=== PATIENT | male | born 1985 | race African-American/Black ===

== ENCOUNTER 2020-10-14 10:35 | Emergency (ER) | payer OTHER ==
[~2020-10-14] VITALS: Ht 177.8 cm; Wt 86.2 kg
[2020-10-14 10:50] VITALS: BP 127/100
--- NOTE | 2020-10-14 10:55 | NUR ---
PATIENT CAME IN WITH STATING, "I WAS playing Basketball hurt Left foot". AOX4, NO SOB NOTED, C/O ACHING PAIN 12/22, NO S/O ANY ACUTE DISTRESS NOTED. MAKE COMFORTABLE IN BED. WILL CONTINUE TO MONITOR
[2020-10-14] MEDS ORDERED: IBUP-1955 PO (11:03)
[2020-10-14] MEDS ORDERED: HYDR-3972 PO (11:03)
--- NOTE | 2020-10-14 11:52 | NUR ---
Patient discharged to home in stable condition. Written and verbal after care instructions given. Patient verbalizes understanding of instruction.
== END 2020-10-14 11:54 | disposition home or self-care (01) ==
LOC: ER 10:38
DX: S86.092A Other specified injury of left Achilles tendon, initial encounter (principal); X58.XXXA Exposure to other specified factors, initial encounter; Y93.67 Activity, basketball; Y92.310 Basketball court as the place of occurrence of the external cause; Y99.8 Other external cause status